=== PATIENT | female | born 1960 | race Two or more races ===

== ENCOUNTER 2025-05-26 14:44 | Emergency (ER) | payer OTHER ==
[~2025-05-26] VITALS: Ht 152.4 cm; Wt 73.3 kg
--- NOTE | 2025-05-26 14:57 | ECG ---
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
--- NOTE | 2025-05-26 15:03 | ED.PDOC ---
HPI Comments 64 y.o female presents to the ED for a chief complaint of generalized weakness x 1 week ago associated with palpitations and SOB x 1-2 days. Patient reports one year ago was diagnosed with a PE in which she got treated but mentions similar symptoms she has now, she had then. Patient denies any chest pain, fever, chills, lightheadedness, nausea, or vomiting. Time Seen by MD: 14:53 Reviewed Notes: Nurses Notes, Medications, Allergies Allergies: Coded Allergies: Penicillins (Verified Allergy, Severe, 05/26/25) Sulfa Antibiotics (Verified Allergy, Severe, 05/26/25) Information Source: Patient Mode of Arrival: Ambulatory Severity: Moderate Timing: Weeks (1) Duration: Since onset Onset: At Rest Cardiac Risk Factors: Other PE Risk Factors: None History of: DVT/PE Modifying Factors: Nothing Associated Signs and Symptoms: SOB, Palpitations Past Medical History PAST MEDICAL HISTORY: Kidney Stones, PE Surgical History: Hysterectomy Surgical History (Other): kidney stone removal OUTREACH ANALYST History: No Pertinent OUTREACH ANALYST History Family History Family History: Family hx of Cancer Social History Smoker: Non-Smoker Alcohol: Denies ETOH Use Drugs: Denies Drug Use Lives In: Home Constitutional: denies: chills, diaphoresis, fatigue, fever, malaise, sweats, weakness, others EENTM: denies: blurred vision, double vision, ear bleeding, ear discharge, ear drainage, ear pain, ear ringing, eye pain, eye redness, hearing loss, mouth pain, mouth swelling, nasal discharge, nose bleeding, nose congestion, nose pain, photophobia, tearing, throat pain, throat swelling, voice changes, others Respiratory: reports: SOB at rest, shortness of breath; denies: cough, hemoptysis, orthopnea, SOB with excertion, stridor, wheezing, others Cardiovascular: reports: palpitations; denies: chest pain, dizzy spells, diaphoresis, Dyspnea on exertion, edema, irregular heart beat, left arm pain, lightheadedness, PND, syncope, others Gastrointestinal: denies: abdomen distended, abdominal pain, blood streaked bowels, constipated, diarrhea, dysphagia, difficulty swallowing, hematemesis, melena, nausea, poor appetite, poor fluid intake, rectal bleeding, rectal pain, vomiting, others Genitourinary: denies: abnormal vagina bleeding, burning, dyspareunia, dysuria, flank pain, frequency, hematuria, incontinence, pain, , vagina di scharge, urgency, others Neurological: reports: dizziness; denies: fainting, headache, left sided numbness, left sided weakness, numbness, paresthesia, pre-existing deficit, right sided numbness, right sided weakness, seizure, speech problems, tingling, tremors, weakness, others Musculoskeletal: denies: back pain, gout, joint pain, joint swelling, muscle pain, muscle stiffness, neck pain, others Integumetry: denies: bruises, change in color, change in hair/nails, dryness, laceration, lesions, lumps, rash, wounds, others Allergic/Immunocompromised: denies: Difficulty Healing, Frequent Infections, Hives, Itching, others Hematologic/Lymphatic: denies: anemia, blood clots, easy bleeding, easy bruising, swollen glands, others Endocrine: denies: excessive hunger, excessive sweating, excessive thirst, excessive urination, flushing, intolerance to cold, intolerance to heat, unexplained weight gain, unexplained weight loss, others Psychiatric: denies: anxiety, bipolar disorder, depression, hopeless, panic disorder, schizophrenia, sleepless, suicidal, others All Other Systems: Reviewed and Negative Physical Exam General Appearance: Moderate Distress HEENT: Normal ENT Inspection, Pharynx Normal, TMs Normal Neck: Full Range of Motion, Non-Tender, Normal, Normal Inspection Respiratory: Chest Non-Tender, Lungs Clear, No Accessory Muscle Use, No Respiratory Distress, Normal Breath Sounds Cardiovascular: No Edema, No JVD, No Murmur, No Gallop, Tachycardia Breast Exam: Deferred Gastrointestinal: No Organomegaly, Non Tender, No Pulsatile Mass, Normal Bowel Sounds, Soft Genitalia: Deferred Pelvic: Deferred Rectal: Deferred Extremities: No calf tenderness, Normal capillary refill, Normal inspection, Normal range of motion, Non-tender, No pedal edema Musculoskeletal : Apperance: Normal Neurologic: Alert, collision center manager II-XII nml as Tested, No Motor Deficits, Normal Affect, Normal Mood, No Sensory Deficits Cerebellar Function: Normal Reflexes: Normal Skin: Dry, Normal Color, Warm Lymphatic: No Adenopathy EKG EKG : Pulse Rate (adult): 101 Cardiac Rhythm: ST Hypertrophy: LAE Was a procedure done? Was a procedure done?: No CP Differential Dx Differential Diagnosis: Anxiety / Panic Attack, Electrolyte Disorder, Hyperthyroidism, Hyperventilation, MA, Sinus Tachycardia Differential Diagnosis: Pulmonary Embolus X-Ray, Labs, Meds, VS Vital Signs Date Time Temp Pulse Resp B/P (MAP) Pulse Ox O2 Delivery O2 Flow Rate FiO2 05/26/25 19:58 95 18 98 Room Air 05/26/25 19:58 98.4 95 18 144/79 (100) 98 98.4 05/26/25 15:51 98 05/26/25 15:03 101 05/26/25 14:50 107 05/26/25 14:48 98.5 100 18 122/87 (99) 99 98.5 Lab Test 05/26/25 15:58 05/26/25 15:02 05/26/25 14:57 Range/Units Troponin I High Sensitivity < 3 L < 3 L </=34 ng/L Urine Color Light-yellow Yellow Urine Clarity Turbid H Clear Urine pH 5.0 5.0-9.0 Urine Specific [place] 1.029 1.001-1.035 Urine Protein Negative Negative Urine Ketones Negative Negative Urine Blood 1+ H Negative /uL Urine Nitrite Negative Negative Urine Bilirubin Negative Negative Urine Urobilinogen Normal Negative mg/dL Urine Leukocyte Esterase 2+ Negative /uL Urine RBC 5 0 - 4 /hpf Urine Microscopic WBC 5 0-5 /HPF Urine Squamous Epithelial Cells Few <5 /hpf Urine Bacteria None seen None Seen /hpf Urine Mucus Few None Seen Urine Glucose Normal Normal mg/dL White Blood Count 6.5 4.4-10.8 10^3/uL Red Blood Count 5.07 4.0-5.20 10^6/uL Hemoglobin 15.3 12.2-16.2 g/dL Hematocrit 44.4 36.0-46.0 % Mean Corpuscular Volume 87.6 80.0-100.0 fL Mean Corpuscular Hemoglobin 30.1 28.0-32.0 pg Mean Corpuscular Hemoglobin Concent 34.4 32.0-36.0 g/dL Red Cell Distribution Width 14.0 11.8-14.3 % Platelet Count 261 140-450 10^3/uL Mean Platelet Volume 8.1 6.9-10.8 fL Neutrophils (%) (Auto) 50.0 37.0-80.0 % Lymphocytes (%) (Auto) 41.1 10.0-50.0 % Monocytes (%) (Auto) 6.3 0.0-12.0 % Eosinophils (%) (Auto) 1.2 0.0-7.0 % Basophils (%) (Auto) 1.4 0.0-2.0 % Neutrophils # (Auto) 3.2 1.6-8.6 10 ^3/uL Lymphocytes # (Auto) 2.7 0.4-5.4 10 ^3/uL Monocytes # (Auto) 0.4 0-1.3 10 ^3/uL Eosinophils # (Auto) 0.1 0-0.8 10 ^3/uL Basophils # (Auto) 0.1 0-0.2 10 ^3/uL Nucleated Red Blood Cells 0.1 % D-Dimer, Quantitative 0.22 0.0-0.49 mg/L FEU Sodium Level 145 136-145 mmol/L Potassium Level 4.3 3.5-5.1 mmol/L Chloride Level 110 H 98-107 mmol/L Carbon Dioxide Level 26 20-31 mmol/L Anion Gap 9 5-15 Blood Urea Nitrogen 18 9-23 mg/dL Creatinine 0.89 0.550-1.02 mg/dL Glomerular Filtration Rate Calc 72 >90 mL/min BUN/Creatinine Ratio 20.2 H 10.0-20.0 Serum Glucose 85 74-106 mg/dL Calcium Level 10.2 8.7-10.4 mg/dL Current Medications Medications (Trade) Dose Ordered Sig/Nikolas Route Start Time Stop Time Status Last Admin Aspirin 162 mg ONCE ONCE PO 05/26/25 15:00 05/26/25 15:06 DC 05/26/25 16:18 Diphenhydramine HCl (Benadryl Capsule) 25 mg ONCE ONCE PO 05/26/25 19:15 05/26/25 19:16 DC 05/26/25 19:23 Tetracaine HCl (Tetracaine 0.5% Opt Soln) 2 drop ONCE ONCE RIGHTEYE 05/26/25 19:45 05/26/25 19:46 DC 05/26/25 19:45 Technique: Real-time ultrasound imaging, with color Doppler and compression of the right common femoral vein, femoral vein, greater saphenous vein, and popliteal vein. Impression: No evidence of DVT in the right lower extremity The patient had tetracaine drops to the right eye secondary to developing conjunctivitis The patient was also given aspirin 162 mg by mouth The D-dimer is negative the CBC and chemistry panel are within normal limits The urine test is positive for UTI The patient is being given Levaquin 500 mg IV piggyback for the UTI We contacted [facility] because the patient's is still somewhat tachycardic but the CAT scan of the chest is negative At this time, the patient will be transferred We spoke with [facility] in the authorization #[id number] The patient is being transferred Images Reviewed?: Images reviewed and evaluated by me Time of 1ST Reevaluation: 15:03 Reevaluation 1ST: Unchanged Patient Education/Counseling: Diagnosis, Treatment, Prognosis Family Education/Counseling: No Family Present SEPSIS Sepsis Screen Physician Orders Electrocardigram (05/26/25 15:55) Electrocardigram (05/26/25 17:55) Heplock Iv (05/26/25 14:58) Business Planning Director (05/26/25 14:58) Blood Pressure (05/26/25 14:58) Pulse Oximetry (05/26/25 14:58) Ct Angio Chest Contrast (05/26/25 14:58) Rt Lower Dvt (05/26/25 14:58) Vital Signs Date Time Temp Pulse Resp B/P (MAP) Pulse Ox O2 Delivery O2 Flow Rate FiO2 05/26/25 19:58 95 18 98 Room Air 05/26/25 19:58 98.4 95 18 144/79 (100) 98 98.4 05/26/25 15:51 98 05/26/25 15:03 101 05/26/25 14:50 107 05/26/25 14:48 98.5 100 18 122/87 (99) 99 98.5 Laboratory Tests Test 05/26/25 14:57 White Blood Count 6.5 10^3/uL (4.4-10.8) Medications Medications Dose Ordered Sig/Nikolas Route Start Time Stop Time Status Last Admin Dose Admin Aspirin 162 mg ONCE ONCE PO 05/26/25 15:00 05/26/25 15:06 DC 05/26/25 16:18 Diphenhydramine HCl 25 mg ONCE ONCE PO 05/26/25 19:15 05/26/25 19:16 DC 05/26/25 19:23 Tetracaine HCl 2 drop ONCE ONCE RIGHTEYE 05/26/25 19:45 05/26/25 19:46 DC 05/26/25 19:45 Departure 1 Departure Time of Disposition: 20:46 Impression: Primary Impression: Palpitations Additional Impression: Chest pressure Disposition: [facility] HOSPICE[facility]MEDICAL FACILITY Condition: Fair Critical Care Note Critical Care Time?: Yes (45 min-critical care time only) Stability Stability form required: Yes Stable for transfer: Intended for transfer (Health plan request transfer), To designated facility Heart Score Heart Score: Heart Score Response (Comments) Value History Moderate Suspicious 1 EKG Normal 0 Age 45-64 1 Risk Factors 1 or 2 risk factors 1 Troponin Normal limit 0 Total 3 I personally scribed for BETTY BARRETT MD ([email or web address]) on 05/26/25 at 15:03. Electronically submitted by Xiao Pleitez ([email or web address]). I personally scribed for BETTY BARRETT MD ([email or web address]) on 05/26/25 at 16:52. Electronically submitted by Xiao Pleitez ([email or web address]). BETTY BARRETT MD May 26, 2025 15:03
[2025-05-26 15:13] LABS: Hematocrit 44.4 % (36.0-46.0); Hemoglobin 15.3 g/dL (12.2-16.2); Mean Corpuscular Hemoglobin 30.1 pg (28.0-32.0); Mean Corpuscular Volume 87.6 fL (80.0-100.0); Nucleated Red Blood Cells % 0.1 %
[2025-05-26 15:19] LABS: Potassium 4.3 mmol/L (3.5-5.1)
[2025-05-26 15:20] LABS: Anion Gap 9 (5-15); Calcium 10.2 mg/dL (8.7-10.4); Carbon Dioxide 26 mmol/L (20-31)
[2025-05-26 15:21] LABS: Chloride 110 mmol/L (98-107); Sodium 145 mmol/L (136-145)
[2025-05-26 15:25] LABS: BUN/Creatinine Ratio 20.2 (10.0-20.0); Blood Urea Nitrogen 18 mg/dL (9-23); Glucose 85 mg/dL (74-106)
[2025-05-26 15:28] LABS: Urine Protein, UAD Negative (Negative)
--- NOTE | 2025-05-26 16:23 | DVH ---
Technique: Real-time ultrasound imaging, with color Doppler and compression of the right common femo ral vein, femoral vein, greater saphenous vein, and popliteal vein. Indication: right calf pain Comparison: None Findings: There is normal compressibility and flow augmentation in all of the imaged deep veins. There are no f illing defects. Impression: No evidence of DVT in the right lower extremity
[2025-05-26] MEDS: IOHEXOL 350 MG/ML 100ML IJ ONE (17:27)
--- NOTE | 2025-05-26 17:44 | DVH ---
CTA Chest with intravenous contrast INDICATION: sob COMPARISON: None TECHNIQUE: Multidetector spiral CTA of the chest was performed of the chest with intravenous contrast . PULMONARY ANGIOGRAPHY PROTOCOL was utilized using a bolus-tracking technique centered on the main p ulmonary artery. Axial, coronal and sagittal multiplanar and MIP reformats were performed. CONTRAST: Type of contrast: Omni 350 Contrast injected: 60 ml Radiation dose : Chest: CTDI volume is 20 mGy. Dose-length product is 346 mGy*cm The dose indicators for CT are the volume computed Tomography (CT) dose Index (CTDIvol) and the dose Length product (DLP), and are measured in units of mGy and mGy-cm, respectively. These indicators are not patient dose, but values generated from the CT scanner acquisition factors. The report includes radiation exposure data for exposures received during this examination. Findings: Limited by poor contrast opacification of pulmonary arteries. Pulmonary artery: No large central or large segmental pulmonary embolism. Lower neck: Normal thyroid. Lungs: Patchy ground-glass opacities in the lower lungs. Heart/Vascular Structures: Normal heart size. No pericardial effusion. Lymph Nodes: No adenopathy Pleura: No pleural effusion or significant pneumothorax. Musculoskeletal: No acute osseous abnormality. Soft tissues: Normal. Upper abdomen: Bilateral renal calculi. IMPRESSION: 1. Limited by poor contrast opacification of the pulmonary arteries. No large central pulmonary embol ism. 2. Patchy ground-glass opacities in the lung bases could represent subsegmental atelectasis. Clinical correlation and continued follow-up is recommended. 3. Bilateral renal calculi incidentally imaged. Consider dedicated imaging of the abdomen. HS:Y
[2025-05-26] MEDS: diphenhdrAMINE HCL 25 MG CAP PO ONE (19:23)
[2025-05-26] MEDS: TETRACAINE HCL 0.5% OPTH(EYE) SOLN 4ML RIGHTEYE ONE (19:45)
[2025-05-26 19:58] VITALS: BP 144/79; PULSE 95; RESP 18; TEMP 98.4; O2SAT 98
== END 2025-05-26 17:13 | disposition home or self-care (01) ==
LOC: ER 14:44
DX: R07.89 Other chest pain (principal); R00.2 Palpitations; Z90.710 Acquired absence of both cervix and uterus; Z88.0 Allergy status to penicillin; Z88.2 Allergy status to sulfonamides
CPT/HCPCS: 36415; 71275; 80048; 81001; 84484; 85025; 85379; 93005; 93971; 99285; Q9967

== ENCOUNTER 2025-09-02 12:18 | Emergency (ER) | payer OTHER ==
[~2025-09-02] VITALS: Ht 152.4 cm; Wt 63.3 kg
--- NOTE | 2025-09-02 13:05 | DVH ---
CHEST RADIOGRAPH Indication: sob, jittery Technique: Single frontal view of the chest was obtained Comparison: None FINDINGS: Lines and Tubes: None Lungs: No focal consolidation. Pleura: No effusion. No pneumothorax. Cardiomediastinal contours: Unremarkable Bones: No acute osseous abnormality. IMPRESSION: 1. No acute cardiopulmonary disease.
--- NOTE | 2025-09-02 13:11 | ED.PDOC ---
SOB-HPI HPI Comments HPI: 65 y/o F, presents to the ED for CC of palpitations. Patient is a poor historian. Patient states, she has been experiencing palpitations onset, Monday (08/29/25) following taking Macrobid. Patient further reports, to have had symptoms of "malaise" similar to when she had a pulmonary embolism prior to commencement of palpitations which were then exacerbated. Patient denies chest pain, weakness, numbness, cough, nasal congestion, or sore-throat. No other symptoms or modifying factors are present at this time. She is already on Macrobid for UTI. Patient is not on any blood thinners. The stated allergy of Macrobid in the chart that has been added today which I do not think is a real allergy. Initial Vitals BP: HR: RR: O2 Sat: Temp: Past Medical history: KIDNEY STONES, PULMONARY EMBOLISM Past Surgical history: HYSTERECTOMY Medications: PENICILLINS, SULFUR Abx Social History: Denies smoking, ETOH, and drug use. Allergies: NKDA WONDERS: HPI: Poor Historian. Past Medical History: Past Surgical History: REVIEW OF SYSTEMS: CONSTITUTIONAL: Denies acute: fever, diaphoresis, chills, generalized weakness. HEAD: Denies acute: headache, photophobia Eyes: Denies acute: Double vision, vision loss, eye pain, eye discharge. EARS: Denies acute: tinnitus, hearing loss, ear discharge, ear pain, THROAT: Denies acute: sore throat, swelling, difficulty swallowing , pain with swallowing, change in voice. NECK: Denies acute: neck pain, neck swelling, stiff neck. HEART: Denies acute : chest pain, LUNGS: Denies acute: SOB, wheezing, cough, hemoptysis ABDOMEN: Denies acute: abdominal pain, Nausea, Vomiting, diarrhea, melena , hematemesis, hematochezia SKIN: Denies acute: rash, redness, lesions, itchiness. EXTREMITIES: Denies acute: calf pain, numbness, tingling, weakness, denies pain in extremity. Denies acute: Low back pain. Neuro: Denies acute: focal neurological deficit, motor or sensory focal neurological deficit, tremors, seizure like activity, confusion, dizziness, change in mental status, loss of bowel or bladder function, cauda equina like symptoms. : Denies acute: dysuria, hematuria, flank pain, increase in urinary frequency. PSYCH: Denies acute: hallucination, suicidal ideation, homicidal ideation. FEMALE: Denies acute: abnormal vaginal bleeding, foul odor, unusual discharge. PHYSICAL EXAM: General: -----no---acute distress, awake and alert. Head: normocephalic, atraumatic. No raccoon's eyes, no foreman sign. Neck: supple, trachea is midline, no swelling. Throat: Normal phonation. Eyes:, no erythema, no purulent discharge, no proptosis, no icterus. Heart: regular rate, regular rhythm, no significant murmur appreciated. Lungs: no apparent respiratory distress, Able to speak in full sentences. No wheezing, no rhonchi, no crackles. No stridors Clear to auscultation bilaterally. Abdomen: Nonspecific generalized tender to palpation, non distended, soft, no guarding, no rebound, + bowel sounds. Neuro: Awake, Alert, oriented to name, self, situation, follows commands GCS=15. Speech is normal. Skin: no petechia, no purpura, no cyanosis, non-pale, not jaundice. Lower extremities: --no - Pitting edema no deformity, no focal swelling, no calf TTP. Makes eye contact. moves all four extremities. Face: no apparent facial droop. No CVA tenderness to percussion bilaterally. Ambulating in the ED independently. ED COURSE: DISCLAIMER: This medical document was created using an electronic medical record system with voice recognition software and computerized dictation system. Although this document has been carefully reviewed, there might still be some phonetic and typographical errors. Occasional wrong-word or "sound-alike" substitutions may have occurred due to the inherent limitations of voice recognition software. These areas are purely typographical due to imperfections of the software programs and do not reflect any compromise in the patient's medical care. Please read the chart carefully and recognize, using context, where these substitutions have occurred. Chief Complaint: Shortness of Breath Time Seen by MD: 12:50 Primary Care Provider: KOBY Reviewed notes: Nurses Notes, Medications, Allergies Information Source: Patient Mode of Arrival: Ambulatory Severity: Moderate Timing: Days Duration: Since onset Context: At Rest History of: None Prehospital treatment: None Modifying Factors: Nothing Associated Signs and Symptoms: None Was a procedure done? Was a procedure done?: No Differential Dx Differential Diagnosis: Anxiety, Pneumonia, Pulmonary Embolism Comments Arrhythmia, Ddx include but not limitied to gastritis, musculoskeletal pain, radiculopathy, atypical chest pain, dissection, aneurysm, ACS, unstable angina, hiatal hernia, GERD, anxiety, costochondritis, PE, pneumothroax, neoplasm, cardiac ischemia, drug abuse, anemia. X-Ray, Labs, Meds, VS Vital Signs Date Time Temp Pulse Resp B/P (MAP) Pulse Ox O2 Delivery O2 Flow Rate FiO2 09/02/25 15:40 96 16 96 Room Air* 0 21 09/02/25 15:38 97.1 96 16 110/78 (89) 98 97.1 09/02/25 13:58 91 09/02/25 12: 98.2 112 16 141/85 99 98.2 Lab Test 09/02/25 16:01 09/02/25 15:40 09/02/25 13:55 09/02/25 12:54 Range/Units Troponin I High Sensitivity < 3 L < 3 L < 3 L </=34 ng/L Urine Color Light-yellow Yellow Urine Clarity Turbid H Clear Urine pH 5.0 5.0-9.0 Urine Specific [place] 1.009 1.001-1.035 Urine Protein Trace H Negative Urine Ketones Negative Negative Urine Blood Trace H Negative /uL Urine Nitrite Negative Negative Urine Bilirubin Negative Negative Urine Urobilinogen Normal Negative mg/dL Urine Leukocyte Esterase 2+ Negative /uL Urine RBC 4 0 - 4 /hpf Urine Microscopic WBC 7 H 0-5 /HPF Urine Squamous Epithelial Cells Few <5 /hpf Urine Bacteria Few H None Seen /hpf Urine Mucus Few None Seen Urine Glucose Normal Normal mg/dL White Blood Count 5.9 4.4-10.8 10^3/uL Red Blood Count 4.59 4.0-5.20 10^6/uL Hemoglobin 13.8 12.2-16.2 g/dL Hematocrit 39.8 36.0-46.0 % Mean Corpuscular Volume 86.6 80.0-100.0 fL Mean Corpuscular Hemoglobin 30.1 28.0-32.0 pg Mean Corpuscular Hemoglobin Concent 34.8 32.0-36.0 g/dL Red Cell Distribution Width 13.7 11.8-14.3 % Platelet Count 316 140-450 10^3/uL Mean Platelet Volume 7.5 6.9-10.8 fL Neutrophils (%) (Auto) 46.0 37.0-80.0 % Lymphocytes (%) (Auto) 41.2 10.0-50.0 % Monocytes (%) (Auto) 10.6 0.0-12.0 % Eosinophils (%) (Auto) 1.2 0.0-7.0 % Basophils (%) (Auto) 1.0 0.0-2.0 % Neutrophils # (Auto) 2.7 1.6-8.6 10 ^3/uL Lymphocytes # (Auto) 2.4 0.4-5.4 10 ^3/uL Monocytes # (Auto) 0.6 0-1.3 10 ^3/uL Eosinophils # (Auto) 0.1 0-0.8 10 ^3/uL Basophils # (Auto) 0.1 0-0.2 10 ^3/uL Nucleated Red Blood Cells 0.1 % D-Dimer, Quantitative 0.38 0.0-0.49 mg/L FEU Sodium Level 139 136-145 mmol/L Potassium Level 4.1 3.5-5.1 mmol/L Chloride Level 103 98-107 mmol/L Carbon Dioxide Level 28 20-31 mmol/L Anion Gap 8 5-15 Blood Urea Nitrogen 11 9-23 mg/dL Creatinine 0.86 0.550-1.02 mg/dL Glomerular Filtration Rate Calc 75 >90 mL/min BUN/Creatinine Ratio 12.8 10.0-20.0 Serum Glucose 99 74-106 mg/dL Lactic Acid Level 1.4 0.4-2.0 mmol/L Calcium Level 9.2 8.7-10.4 mg/dL Total Bilirubin 0.3 0.2-1.0 mg/dL Aspartate Amino Transferase (AST) 24 13-40 U/L Alanine Aminotransferase (ALT) 19 7-40 U/L Alkaline Phosphatase 107 46-116 U/L B-Type Natriuretic Peptide 5.80 0-100 pg/mL Total Protein 7.2 5.7-8.2 g/dL Albumin 4.5 3.2-4.8 g/dL [address] [address] Ph: [phone] DIAGNOSTIC IMAGING Diagnostic Imaging Report : [id number] Signed PATIENT: DEANNE NORIEGA GYNETHACCT: [id number] UNIT: [id number] : 1960 LOC: ER ROOM / BED: / AGE / SEX: 65 / F ADM STATUS: REG ER SERVICE [id number] ORDERING PHYSICIAN: CAMILO WATSON DO PROCEDURE(s): CXRP - CHEST PORTABLE REASON: sob, jittery ORDER NUMBER(s): [id number], ACCESSION NUMBER(s): [id number] CHEST RADIOGRAPH Indication: sob, jittery Technique: Single frontal view of the chest was obtained Comparison: None FINDINGS: Lines and Tubes: None Lungs: No focal consolidation. Pleura: No effusion. No pneumothorax. Cardiomediastinal contours: Unremarkable Bones: No acute osseous abnormality. IMPRESSION: 1. No acute cardiopulmonary disease. ATED BY: AC ALCALA Jr., DO DICTATED DATE/TIME: 09/02/25 1303 SIGNED BY: AC ALCALA Jr., SIGNED DATE/TIME: 09/02/25 130 CC: Time of 1ST Reevaluation: 13:20 Reevaluation 1ST: Unchanged Patient Education/Counseling: Diagnosis, Treatment Family Education/Counseling: No Family Present Comments MDM: patient presented with the above HPI.---palpitation---workup was initiated. patient was found with the above mentioned diagnosis. Patient's main concern is that she might be having a pulmonary embolus because she feels she is experiencing similar symptoms. Patient's D-dimer was normal. Patient has no respiratory symptoms here or shortness of breath or tachycardia. EKGs unremarkable. the following medications were ordered: please refer to order lists of meds and tests obtained by myself Dr. Watson. Patient ED course and VS have been stabilized. Patient has been reassessed in the ED and remained in a stable condition. Pertinent incidental findings were discussed with the patient and/or family. Patient/family voices understanding and is agreeable with plan. Patient has been observed in the ED adequate length of time to insure improvement/stability. Escalation of care considered: Consideration of escalation to observation or admission Patient was DISCHARGED home in a stable condition. All the reports of any imaging studies that were ordered by myself were reviewed by myself. SEPSIS Sepsis Screen Date sepsis recognized/suspect: Sep 02, 2025 Time Sepsis recognized/suspect: 1228 Recent Procedure: No On Antibiotic Therapy: No Respiratory Rate >20: No Heart Rate >90: Yes Temp<36 C (96.8 F) or >38.3 C: No SBP <90 or MAP <65 mmHG: No New Acute Mental Status Change: No Is the patient on CPAP, BIPAP,: No Physician Orders Casualty Claims Supervisor (09/02/25 ) Chest Portable (09/02/25 12:37) Electrocardigram (09/02/25 12:37) Vital Signs Date Time Temp Pulse Resp B/P (MAP) Pulse Ox O2 Delivery O2 Flow Rate FiO2 09/02/25 15:40 96 16 96 Room Air* 0 21 09/02/25 15:38 97.1 96 16 110/78 (89) 98 97.1 09/02/25 13:58 91 09/02/25 12:25 98.2 112 16 141/85 99 98.2 Laboratory Tests Test 09/02/25 12:54 Lactic Acid Level 1.4 mmol/L (0.4-2.0) White Blood Count 5.9 10^3/uL (4.4-10.8) Departure 1 Departure Time of Disposition: 14:50 Impression: Primary Impression: Palpitations Additional Impression: UTI (urinary tract infection) Disposition: HOME / SELF CARE / HOMELESS Condition: Stable Additional Instructions: Additional instructions: Please read all instructions provided in this packet carefully. You MUST follow-up with your primary care/family doctor in 1 to 2 days. If you are unable to see your primary care/family doctor, please return to our emergency room for re-assessment and re-evaluation in 1 to 2 days. Return to the emergency room here in our facility or to the nearest ER DRU if your symptoms change or worsen. CONSULTATIONS: you MUST Follow-up for consultation as soon as possible with: urology as arrange for lithotripsy this Monday. Cardiology in 1-2 days. Please call for appointment. You MUST call the consultants office yourself to make an appointment. You may need to arrange that through your insurance and/or your primary/family doctor. If you are unable to see the lead consultant in 1 to 2 days, you must return to our emergency room (or any other ER of your choice) for re-assessment and re- evaluation. Adequate fluid hydration. Although you have been discharged from the Emergency Department, this does not mean that you have a "clean bill of health". No definitive diagnosis for your symptoms has been made today. It is possible that you are in the process of developing a serious illness. This is why you must return to the ED without fail if any new or worsening symptoms develop. Below is a copy of your radiological report for follow up: Discharged With: Self I personally scribed for CAMILO WATSON DO ([email or web address]) on 09/02/25 at 13:11. Electronically submitted by Erica Miranda ([email or web address]). I personally scribed for CAMILO WATSON DO ([email or web address]) on 09/02/25 at 14:38. Electronically submitted by Erica Miranda ([email or web address]). CAMILO WATSON DO Sep 02, 2025 13:11
[2025-09-02 13:12] LABS: Hematocrit 39.8 % (36.0-46.0); Hemoglobin 13.8 g/dL (12.2-16.2); Mean Corpuscular Hemoglobin 30.1 pg (28.0-32.0); Mean Corpuscular Volume 86.6 fL (80.0-100.0); Nucleated Red Blood Cells % 0.1 %
[2025-09-02 13:26] LABS: Alanine Aminotransferase 19 U/L (7-40); Alkaline Phosphatase 107 U/L (46-116); Anion Gap 8 (5-15); BUN/Creatinine Ratio 12.8 (10.0-20.0); Blood Urea Nitrogen 11 mg/dL (9-23); Calcium 9.2 mg/dL (8.7-10.4); Carbon Dioxide 28 mmol/L (20-31); Chloride 103 mmol/L (98-107); Glucose 99 mg/dL (74-106); Potassium 4.1 mmol/L (3.5-5.1); Sodium 139 mmol/L (136-145); Total Protein 7.2 g/dL (5.7-8.2)
[2025-09-02 13:27] LABS: Albumin 4.5 g/dL (3.2-4.8); Bilirubin, Total 0.3 mg/dL (0.2-1.0)
[2025-09-02 15:38] VITALS: BP 110/78; TEMP 97.1
[2025-09-02 15:40] VITALS: PULSE 96; RESP 16; O2SAT 96
[2025-09-02 16:08] LABS: Urine Protein, UAD TRACE (Negative)
--- NOTE | 2025-09-02 23:44 | ECG ---
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
== END 2025-09-02 16:35 | disposition home or self-care (01) ==
LOC: ER 12:18
DX: N39.0 Urinary tract infection, site not specified (principal); R00.2 Palpitations; Z90.710 Acquired absence of both cervix and uterus; Z79.899 Other long term (current) drug therapy
CPT/HCPCS: 36415; 71045; 80053; 81001; 83605; 83880; 84484; 85025; 85379; 93005